=== PATIENT | female | born 1960 | race Caucasian/White ===

== ENCOUNTER → 2019-03-25 | Day surgery (SDC) | payer BC, OTHER ==
--- NOTE | 2019-03-26 16:42 | PATH ---
Surgical Pathology Report Patient Name: YANG MENJIVAR [facility]. Rec. #: [id number] /Age/Gender: 1960 (Age: 58) / F Account: [id number] Location: [facility] Taken: 03/25/2019 Received: 03/25/2019 Reported: 03/26/2019 Physicians: Serena Allen M.D. Specimen(s) Received A: RIGHT BREAST SPECIMEN - WITH CALCIFICATIONS B: RIGHT BREAST SPECIMEN - WITHOUT CALCIFICATIONS Clinical History Nonpalpable lesion Mammographic findings: Microcalcification, suspicious Final Diagnosis A. RIGHT BREAST SPECIMEN WITH CALCIFICATIONS, STEREOTACTIC BIOPSY: DUCTAL CARCINOMA IN SITU (DCIS), HIGH NUCLEAR GRADE, SOLID PATTERN, WITH ASSOCIATED NECROSIS AND CALCIFICATIONS. Results of Estrogen Receptor (ER) and Progesterone Receptor (NJ) studies performed on block "A1" at [facility] are as follows: ER (clone [id number] mouse monoclonal antibody by Leica): 40% nuclear staining with weak intensity (Positive). NJ (clone16 mouse monoclonal antibody by Leica): 0% nuclear staining (Negative). Positive and negative controls (internal if applicable) show appropriate results. Formalin fixation and cold ischemic times are within current ASCO/CAP recommendations for ER, NJ and Her2 testing. Comment: Immunohistochemical stains performed and interpreted at [facility] show the following results: smooth muscle myosin heavy chain and p63 show intact myoepithelial cell layer in the areas of carcinoma, supporting ductal carcinoma in situ. B. RIGHT BREAST SPECIMEN WITHOUT CALCIFICATIONS, STEREOTACTIC BIOPSY: BENIGN BREAST TISSUE WITH FOCAL STROMAL FIBROSIS. Electronically Signed Brooklyn Herrera M.D. Addendum Reported: 03/31/[address] Chandler's office confirmed receipt of faxed report, 03/30/2019. Brooklyn Herrera M.D. Gross Description A. Received in formalin labeled "right breast with calcifications," is a 2.5 x 2.4 x 0.3 cm aggregate of multiple messina-yellow, irregular to cylindrical portions of fibroadipose tissue. The formalin is filtered and the specimen is entirely submitted in one cassette. B. Received in formalin labeled "right breast without calcifications," is a 2.1 x 1.6 x 0.3 cm aggregate of multiple messina-yellow, irregular to cylindrical portions of fibroadipose tissue. The formalin is filtered and the specimen is entirely submitted in one cassette. Time to formalin fixation: 5 minutes Total formalin fixation time: Approximately 8 hours. DL03/25/2019 saudi03/25/2019
== END | disposition home or self-care (01) ==
LOC: FMAMMOTONE 08:44
PROVIDERS: ATTEND Obstetrics & Gynecology
PROC: 0HBT3ZX Excision of Right Breast, Percutaneous Approach, Diagnostic (ICD-10-PCS; principal; 2019-03-25)
DX: D05.91 Unspecified type of carcinoma in situ of right breast (principal); N64.89 Other specified disorders of breast; Z17.0 Estrogen receptor positive status [ER+]; N60.31 Fibrosclerosis of right breast; R92.1 Mammographic calcification found on diagnostic imaging of breast
CPT/HCPCS: 19081; 87899; 88305-TC; 88341-TC; 88342-TC; A4648

== ENCOUNTER 2019-05-25 06:59 | Day surgery (SDC) | payer BC, OTHER ==
[2019-05-24 13:21] VITALS: BMI 24.4
[2019-05-25] MEDS ORDERED: LIDOCAINE HCL 1%, 10 MG/ML (20ML VIAL) ONE ×3 (11:04→13:10)
[2019-05-25] MEDS ORDERED: ISOSULFAN BLUE 10 MG/ML VIAL SQ ONE (11:04)
[2019-05-25] MEDS ORDERED: MIDAZOLAM HCL 2 MG/2 ML SINGLE DOSE VIAL ONE (11:36)
[2019-05-25] MEDS ORDERED: PROPOFOL 20 ML ONE ×2 (11:36)
[2019-05-25] MEDS ORDERED: ceFAZolin SODIUM 1 GM VIAL IVPB ONE (13:30)
[2019-05-25] MEDS ORDERED: EPHEDRINE SULFATE/0.9% NACL/PF 50 MG/10 ML SYRINGE NR ONE (13:50)
--- NOTE | 2019-05-25 15:07 | OP ---
DATE OF OPERATION: DATE OF DICTATION: 05/25/2019 PREOPERATIVE DIAGNOSIS: Right breast ductal carcinoma in situ. POSTOPERATIVE DIAGNOSIS: Right breast ductal carcinoma in situ. PROCEDURE: Right breast bracket wire localized lumpectomy and sentinel node biopsy. SURGEON: Kristen Emery MD ANESTHESIA: General. ESTIMATED BLOOD LOSS: Minimal. COMPLICATIONS: None. This was a sterile procedure. INDICATION FOR PROCEDURE: Patient presented with a screening mammogram that noted calcifications in the lower inner right breast. A needle biopsy of 1 of these areas showed a ductal carcinoma in situ. There were other areas of calcifications in the lower inner right breast as well. Therefore, I did an MRI, which noted a 1.2-cm enhancing mass in this same location with a clip within it, and my recommendation was a lumpectomy and a central node biopsy given the wide area of DCIS and calcifications. The procedure was discussed with all of the questions answered. PROCEDURE IN DETAIL: Patient was brought to [facility] in [place], taken to breast imaging where 3 wires were placed by the blunger to localize the area on the lower inner right breast. She was then brought to nuclear medicine where I injected technetium sulfur colloid as an intradermal injection to the right breast 5 o'clock areolar border. She was brought up to the operating room, and after induction of general anesthesia and IV antibiotics, the right breast and axilla were prepped, 2.5 mL of Methylene blue diluted with 2.5 mL of injectable saline was injected by me into the right subaerolar plexus, and the breast was massaged for 5 minutes. The right breast and axilla were then prepped and draped in the usual sterile fashion. A 4-cm incision was made in the right axilla, carried down through the clavipectoral fascia to identify a level 1 sentinel lymph node that was blue and hot. This was sent to pathology as permanent section. There was no other blue dye radioactivity or pathologic feeling lymph node in the right axilla; therefore, once hemostasis was assured, the right breast lumpectomy was performed. A radial incision was made in the 4 o'clock location of the right breast, and all 3 wires were used to guide me to the area of interest, and an en bloc lumpectomy was performed, tagged with a long stitch lateral, short stitch superior, sent for a specimen radiograph. This was also a quadrantectomy. Hemostasis was assured with electrocautery. The specimen radiograph showed the clips as well as the 3 wires to be intact within the specimen as well as multiple areas of calcifications. The margins from the calcifications appear adequate. This was then sent to Pathology for permanent section. Hemostasis was assured with electrocautery. The parenchyma was approximated with interrupted 2-0 Vicryl, skin approximated with interrupted 3-0 Vicryl and running 4-0 Prolene. A sterile dressing with Tegaderm and 4 x 4 was applied. The axillary incision was also closed in a routine fashion with interrupted 3-0 Vicryl, running 4-0 Prolene. A sterile dressing with Tegaderm, 4 x 4 was applied. She tolerated the procedure well, was extubated on the operating room table. A mammary binder was placed, and she was taken to recovery in good condition. KRISTEN EMERY M.D. [id number]
[2019-05-25] MEDS ORDERED: oxyCODONE HCL 5 MG TABLET PO PRN (15:25)
[2019-05-25] MEDS ORDERED: ONDANSETRON 4 MG/2 ML VIAL IVPUSH PRN (15:25)
[2019-05-25 16:06] VITALS: TEMP 97.7
[2019-05-25] MEDS ORDERED: oxyCODONE HCL 5 MG TABLET ONE (16:31)
[2019-05-25 17:41] VITALS: BP 121/76; PULSE 90
--- NOTE | 2019-05-28 17:42 | PATH ---
Surgical Pathology Report Patient Name: YANG MENJIVAR [facility]. Rec. #: [id number] /Age/Gender: 1960 (Age: 58) / F Account: [id number] Location: [facility] Taken: 05/25/2019 Received: 05/25/2019 Reported: 05/28/2019 Physicians: Kristen Truong M.D. Specimen(s) Received A: RIGHT BREAST LUMPECTOMY B: RIGHT AXILLARY SENTINEL LYMPH NODE#1 BLUE AND HOT Clinical History DCIS Final Diagnosis A. RIGHT BREAST LUMPECTOMY: MICROINVASIVE CARCINOMA, MULTIPLE FOCI (AT LEAST 4 FOCI), MEASURES LESS THAN 1 MM IN GREATEST DIMENSION, IN A BACKGROUND OF DUCTAL CARCINOMA IN SITU (DCIS). DCIS, HIGH NUCLEAR GRADE, SOLID PATTERN, WITH ASSOCIATED NECROSIS AND CALCIFICATIONS. DCIS SPANS AT LEAST 20 MM IN GREATEST DIMENSION, PRESENT IN 31 OUT OF 32 SLIDES. MARGINS ARE NEGATIVE FOR CARCINOMA. MICROINVASIVE CARCINOMA IS 5MM FROM THE CLOSEST MARGIN (INFERIOR). DCIS IS AT LESS THAN 1 MM FROM MEDIAL, INFERIOR, AND DEEP MARGINS. PRIOR BIOPSY SITE WITH REACTIVE CHANGES PRESENT. PATHOLOGIC STAGE (pTMN): pT1mi pN0 (sn) ALSO SEE SURGICAL PATHOLOGY CASE SUMMARY BELOW. Comment: Immunohistochemical stains performed and interpreted at [facility] show the following results: smooth muscle myosin heavy chain and p63 show loss of the myoepithelial cell layer in the foci of microinvasive carcinoma (block A3, A9, and A15). Smooth muscle myosin heavy chain and p63 highlight preserved myoepithelial layer in DCIS (block A4 and A18). B. RIGHT AXILLARY SENTINEL LYMPH NODE #1, BLUE AND HOT, EXCISION: ONE LYMPH NODE, NEGATIVE FOR METASTATIC CARCINOMA (0/1). Comments Breast Invasive Carcinoma: Surgical Pathology Case Summary (Based on AJCC TNM 8 th edition) Procedure _x_ Excision (less than total mastectomy) Specimen Laterality _x_ Right Tumor Size _x_ Microinvasion only (=1 mm) Histologic Type _x_ Micro-invasive carcinoma Histologic Grade (Brian Histologic Score) Glandular (Acinar)/Tubular Differentiation _x_ Only microinvasion present (not graded) Nuclear Pleomorphism _x_ Only microinvasion present (not graded) Mitotic Rate _x_ Only microinvasion present (not graded) Overall Grade _x_ Only microinvasion present (not graded) Tumor Focality _x_ Multiple foci of invasive carcinoma Number of foci: at least 4 Sizes of individual foci: <1mm Ductal Carcinoma In Situ (DCIS) _x_ DCIS is present in specimen Size (extent) of DCIS: Estimated size (extent) of DCIS is at least (millimeters): 20 mm Number of blocks with DCIS: 31 Number of blocks examined: 32 Margins Invasive Carcinoma Margins __x_ Uninvolved by invasive carcinoma Distance from closest margin (millimeters): 5 mm Closest margin: Inferior margin DCIS Margins _x_ Uninvolved by DCIS Distance from closest margin (millimeters): < 1 mm Closest margin: medial, inferior, and deep margins. Regional Lymph Nodes _x_ Uninvolved by tumor cells Number of Lymph Nodes Examined: 1 Number of Russell Nodes Examined: 1 Treatment Effect _x_ No known presurgical therapy Lymphovascular Invasion _x_ Not identified Pathologic Stage Classification (pTNM, AJCC 8th Edition) Primary Tumor (Invasive Carcinoma) (pT) _x_ pT1mi: Tumor =1 mm in greatest dimension Category (pN) _x_ pN0 (sn): No regional lymph node metastasis identified or ITCs only Biomarker Studies Results of ER and MT studies performed on this specimen (block# A15) at [facility] for the area of microinvasive carcinoma are as follows: ER (clone 6F11 mouse monoclonal antibody by Leica): <1% nuclear staining with weak intensity (negative). MT (clone16 mouse monoclonal antibody by Leica): 0% nuclear staining (negative). Results of Her2 and Ki67 studies will be reported separately in an addendum. Positive and negative controls (internal if applicable) show appropriate results. Formalin fixation and cold ischemic times are within current ASCO/CAP recommendations for ER, MT and Her2 testing. Electronically Signed Brooklyn Herrera M.D. Addendum Reported: 06/07/2019 Addendum Diagnosis Breast Cancer Biomarker Analysis performed and interpreted at [facility] ([id number]) shows the following: Marker Result Interpretation Ki67 15% Borderline HER2 IHC 3+ Positive See [facility] report for additional details. Brooklyn Herrera M.D. Gross Description A. Received fresh on an AccuGrid, labeled "right breast lumpectomy," is a 7.8 x 6.7 x 3.8 cm. messina-yellow, irregular, portion of fibroadipose tissue with 3 needle localization wires present. There is a short suture marking the superior aspect and a long suture marking the lateral aspect, per the surgeon. There is no skin or nipple present. The specimen is inked as follows: Superior blue; inferior green; anterior and lateral red; medial yellow; deep black. The specimen is serially sectioned from anterior to deep. Sectioning reveals abundant dense, white, focally firm fibrous tissue abutting the superior, inferior, lateral and deep margins. Metal Window Screen Assembler sections are submitted in 32 cassettes as follows: 1-anterior margin; 8-00-gyvssuxl submitted fibrous tissue from anterior to deep (one bisected section each in cassettes 2/3, 4/5, 6/7; one trisected section each in cassettes 8//10, 11//13, 14/15/16, 17/18/19, 20/21/22, 23/24/25; one bisected section each in cassettes 26/27, 28/29, 30/31); 32-deep margin. Time to formalin fixation: Less than one hour Total formalin fixation time: Approximately 27 hours B. Received in formalin labeled "right axillary sentinel lymph node," is a 1.8 x 1.7 x 0.6 cm lymph node with attached fat. The specimen is bisected and entirely submitted in two cassettes. 05/26/2019 [facility]05/26/2019
== END 2019-05-25 17:15 | disposition home or self-care (01) ==
LOC: JASU-SURG 06:59
PROVIDERS: ATTEND Surgery
PROC: 0HBT0ZZ Excision of Right Breast, Open Approach (ICD-10-PCS; principal; 2019-05-25 12:00)
DX: C50.311 Malignant neoplasm of lower-inner quadrant of right female breast (principal); D05.91 Unspecified type of carcinoma in situ of right breast
CPT/HCPCS: 19281; 76098-TC-FY; 78195-TC; 88307-TC; 88341-TC; 88342-TC; 94760; A9541

== ENCOUNTER 2019-07-27 07:08 | Inpatient (IN) | payer BC, OTHER ==
[2019-07-23 16:10] VITALS: BMI 23.8
[2019-07-27] MEDS ORDERED: MIDAZOLAM HCL 2 MG/2 ML SINGLE DOSE VIAL ONE ×2 (09:11)
[2019-07-27] MEDS ORDERED: ROCURONIUM BROMIDE 50 MG/5 ML SYRINGE ONE (09:18)
[2019-07-27] MEDS ORDERED: ceFAZolin SODIUM 1 GM VIAL IVPB ONE (09:32)
[2019-07-27] MEDS ORDERED: LACTATED RINGERS SOLUTION 1,000 ML/1,000 ML INFUS.BAG IV SCH (10:45)
[2019-07-27] MEDS ORDERED: ONDANSETRON 4 MG/2 ML VIAL IVPB PRN (10:45)
[2019-07-27] MEDS ORDERED: ACETAMINOPHEN 500 MG TABLET (FP) PO PRN (10:45)
[2019-07-27] MEDS ORDERED: ALPRAZolam 0.25 MG TABLET PO ONE (10:45)
[2019-07-27] MEDS ORDERED: oxyCODONE HCL 5 MG TABLET PO PRN ×2 (10:54→10:55)
[2019-07-27] MEDS ORDERED: ACETAMINOPHEN 325 MG TABLET (FP) PO PRN ×2 (10:54→10:55)
[2019-07-27] MEDS ORDERED: HYDROmorphone *PCA* 10MG/50ML DISP.SYRIN PCA SCH ×3 (11:00→14:00)
[2019-07-27] MEDS ORDERED: ePHEDrine SULFATE 50 MG/1 ML AMPULE ONE (11:38)
--- NOTE | 2019-07-27 13:23 | OP ---
Operative Note - Note: Operative Date: 07/27/19 Pre-Operative Diagnosis: Acquired Absense of Both Breasts Operation: Bilateral Immediate Staged Breast Reconstruction, Bilateral Insertion of Tissue Expanders, Bilateral Insertion of Alloderm. Implants: Coram CPX4 Tissue Expanders Tall Height 450cc Post-Operative Diagnosis: Same as Pre-op Surgeon: Tony Petersen Anesthesia: General Operative Report Dictated: Yes
[2019-07-27] MEDS ORDERED: ONDANSETRON 4 MG/2 ML VIAL IVPUSH PRN ×2 (13:29→13:53)
[2019-07-27] MEDS: LACTATED RINGERS SOLUTION 1,000 ML IV SCH ×2 (13:30→21:51)
[2019-07-27] MEDS ORDERED: HYDROmorphone HCl 2 MG/ML VIAL IVPUSH ONE (13:30)
[2019-07-27] MEDS ORDERED: HYDROmorphone *PCA* 10MG/50ML DISP.SYRIN ONE (13:41)
--- NOTE | 2019-07-27 13:49 | OP ---
DATE OF OPERATION: 07/27/2019 PREOPERATIVE DIAGNOSIS: Acquired absence of both breasts. POSTOPERATIVE DIAGNOSIS: Acquired absence of both breasts. PROCEDURE PERFORMED: Bilateral immediate staged breast reconstruction with bilateral insertion of tissue expanders and bilateral insertion of Alloderm sheets. SURGEON: Tony Lambert MD ANESTHESIA: General via endotracheal tube. DESCRIPTION OF PROCEDURE: The patient is on the operating room at the conclusion of bilateral total mastoidectomies by Dr. Truong. The right breast reconstruction was now approached first. The subpectoral plane was developed using electrocautery and lighted retractors. The dissection continued in the subpectoral pocket superiorly, medially, and laterally. The inferior attachments of the pectoralis muscle to the ribs was released, and a sheet of medium-thickness Alloderm was brought onto the field and soaked for 5 minutes in saline. This perforated sheet was trimmed to size and was inset first suturing to the lower edge of the pectoralis major muscle in a continuous horizontal mattress fashion. A tissue cloud systems administrator selected was a Meta CPX 4 tall height cloud systems administrator 450 mL. Of note, the weight of the surgical specimen on the right breast was 545 g and on the left breast was 422 g (understandable as the patient has had a previous lumpectomy with radiation on the left). All air was removed from the tissue cloud systems administrator, and 50 mL of sterile saline was instilled into the cloud systems administrator. Assessment Nurse was then placed under the subpectoralis muscle and Alloderm and the Alloderm was reflected over the inferior aspect of the tissue cloud systems administrator and sutured in place at the inframammary fold and laterally. The sutures used were 2-0 Vicryl suture in simple, interrupted fashion in the inframammary fold. A 19-Fijian Nawaf-Sethi round drain was inserted through a separate stab incision in the anterior axillary line, and this was trimmed to size. The drain was sutured in place with a 2-0 silk suture. The wounds were then closed in layered fashion. Deep tissues were closed with 3-0 Biosyn suture in interrupted buried fashion, and skin was closed using No. 4-0 V-Lock 90 suture in a continuous intradermal fashion. The wound was further secured with Steri-Strips. An identical procedure was performed on the left breast, and an identical tissue cloud systems administrator was selected. At the conclusion of the procedure prior to placing dressings, the port finder was used to locate the ports on both sides, and an additional 50 mL of sterile saline was instilled into each cloud systems administrator. Therefore, at the conclusion of the procedure, 100 mL of saline was present in each tissue cloud systems administrator. Sterile dressings were then applied and secured with a surgical bra. The patient was then awoken from anesthesia without any difficulty and taken from the operating room to the recovery room in satisfactory condition having tolerated the procedure well. TONY LAMBERT M.D. /[id number]
[2019-07-27] MEDS ORDERED: DEXAMETHASONE SOD PHOSPHATE 4 MG/1 ML VIAL IVPUSH PRN (13:53)
[2019-07-27] MEDS ORDERED: PROMETHAZINE HCL 25 MG/1 ML VIAL IVPB PRN (13:53)
--- NOTE | 2019-07-27 14:21 | OP ---
DATE OF OPERATION: 07/27/2019 PREOPERATIVE DIAGNOSIS: Right breast cancer. POSTOPERATIVE DIAGNOSIS: Right breast cancer. PROCEDURE: Bilateral total mastectomy. SURGEON: Kristen Emery MD BDR: Tony Petersen MD ANESTHESIA: General. ESTIMATED BLOOD LOSS: Minimal. COMPLICATIONS: None. This was a sterile procedure. INDICATION FOR PROCEDURE: Patient had a right breast lumpectomy for multifocal, invasive duct carcinoma with multiple areas of DCIS with close margins. Given a history of left breast cancer, we discussed the options of re-excision lumpectomy versus mastectomy, and after discussion, decision was to go ahead with bilateral mastectomy. She met with Dr. Petersen to discuss reconstruction options. PROCEDURE IN DETAIL: Patient brought to [facility]. Taken into the operating room, and after induction of general anesthesia and IV antibiotics, both breasts were prepped and draped in the usual sterile fashion. An incision was made to include the nipple areolar complex first on the right side, and superior, inferior, medial, lateral flaps were raised, and the breast was reflected off the pectoralis muscle. Tagged with a stitch at the lateral edge and sent as a right mastectomy. The hemostasis was assured with electrocautery. Then instruments, gloves, gowns were changed and the left breast mastectomy was performed. Again, an ellipse of skin was taken to include the nipple areolar complex, and superior, inferior, medial, lateral flaps were raised, and the breast was reflected off the pectoralis muscle and tagged with a stitch at the lateral edge. Sent as a left mastectomy. Hemostasis was assured with electrocautery. She tolerated procedure well. She was then left with Dr. Petersen to finish the reconstruction part of the procedure. KRISTEN EMERY M.D. [id number]
--- NOTE | 2019-07-27 20:06 | CONSULT ---
Consultation: REQUESTING PROVIDER: Dr. Petersen CONSULT REQUEST: We have been asked to medically evaluate this patient for ( specify). HISTORY OF PRESENT ILLNESS: Patient is a 59 year old female with PMH of DCIS breast CA s/p L mastectomy and femoral bypass surgery 5 years ago who presents today s/p R breast mastectomy and reconstruction. Pt endorses mild discomfort surround surgical site. Denies any fevers, chills, chest pain, SOB, abd pain. REVIEW OF SYSTEMS: CONSTITUTIONAL: Absent: fever, chills, diaphoresis, generalized weakness, malaise, loss of appetite, weight change HEENT: Absent: rhinorrhea, nasal congestion, throat pain, throat swelling, difficulty swallowing, mouth swelling, ear pain, eye pain, visual changes CARDIOVASCULAR: Absent: chest pain, syncope, palpitations, irregular heart rate, lightheadedness , peripheral edema RESPIRATORY: Absent: cough, shortness of breath, dyspnea with exertion, orthopnea, wheezing, stridor, hemoptysis GASTROINTESTINAL: Absent: abdominal pain, abdominal distension, nausea, vomiting, diarrhea, constipation, melena, hematochezia GENITOURINARY: Absent: dysuria, frequency, urgency, hesitancy, hematuria, flank pain, genital pain MUSCULOSKELETAL: Absent: myalgia, arthralgia, joint swelling, back pain, neck pain SKIN: Absent: rash, itching, pallor HEMATOLOGIC/IMMUNOLOGIC: Absent: easy bleeding, easy bruising, lymphadenopathy, frequent infections ENDOCRINE: Absent: unexplained weight gain, unexplained weight loss, heat intolerance, cold intolerance NEUROLOGIC: Absent: headache, focal weakness or paresthesias, dizziness, unsteady gait, seizure, mental status changes, bladder or bowel incontinence PSYCHIATRIC: Absent: anxiety, depression, suicidal or homicidal ideation, hallucinations. PHYSICAL EXAMINATION Vital Signs - 24 hr 07/27/19 07/27/19 07/27/19 07:32 07:54 07:56 Temperature 97.8 F Pulse Rate 89 Respiratory 16 Rate Blood Pressure 115/73 O2 Sat by Pulse 96 96 Oximetry (%) 07/27/19 07/27/19 07/27/19 13:19 13:30 13:45 Temperature 98.6 F Pulse Rate 100 H 96 H 93 H Respiratory 20 12 16 Rate Blood Pressure 149/82 150/73 141/74 O2 Sat by Pulse 95 100 100 Oximetry (%) 07/27/19 07/27/19 07/27/19 13:50 14:00 14:15 Temperature Pulse Rate 93 H 97 H 95 H Respiratory 16 10 11 Rate Blood Pressure 141/74 138/68 125/71 O2 Sat by Pulse 100 100 99 Oximetry (%) 07/27/19 07/27/19 07/27/19 14:30 14:45 15:00 Temperature Pulse Rate 98 H 97 H 98 H Respiratory 16 12 12 Rate Blood Pressure 130/71 132/67 126/75 O2 Sat by Pulse 99 99 98 Oximetry (%) 07/27/19 07/27/19 07/27/19 15:15 15:30 15:45 Temperature Pulse Rate 98 H 88 88 Respiratory 12 16 12 Rate Blood Pressure 130/71 140/80 135/75 O2 Sat by Pulse 98 98 98 Oximetry (%) 07/27/19 07/27/19 07/27/19 16:00 16:15 16:30 Temperature Pulse Rate 92 H 92 H 95 H Respiratory 16 16 16 Rate Blood Pressure 118/80 135/73 131/74 O2 Sat by Pulse 98 98 99 Oximetry (%) 07/27/19 07/27/19 07/27/19 16:45 17:00 17:15 Temperature Pulse Rate 97 H 94 H 95 H Respiratory 16 16 16 Rate Blood Pressure 133/73 126/68 130/70 O2 Sat by Pulse 99 99 99 Oximetry (%) 07/27/19 17:30 Temperature Pulse Rate 93 H Respiratory 11 Rate Blood Pressure 112/72 O2 Sat by Pulse 97 Oximetry (%) GENERAL: Awake, alert, and fully oriented, in no acute distress. HEAD: Normal with no signs of trauma. EYES: Pupils equal, round and reactive to light, extraocular movements intact, sclera anicteric, conjunctiva clear. No lid lag. EARS, NOSE, THROAT: Ears normal, nares patent, oropharynx clear without exudates. Moist mucous membranes. NECK: Normal range of motion, supple without lymphadenopathy, JVD, or masses. LUNGS: Breath sounds equal, clear to auscultation bilaterally. No wheezes, and no crackles. No accessory muscle use. HEART: Regular rate and rhythm, normal S1 and S2 without murmur, rub or gallop. CHEST: Surgical dressing in place with no erythema or drainage. ABDOMEN: Soft, nontender, not distended, normoactive bowel sounds, no guarding, no rebound, no masses. No hepatomegaly or splenomegaly. MUSCULOSKELETAL: Normal range of motion at all joints. No bony deformities or tenderness. No CVA tenderness. UPPER EXTREMITIES: 2+ pulses, warm, well-perfused. No cyanosis. No clubbing. Cap refill <2 seconds. No peripheral edema. LOWER EXTREMITIES: 2+ pulses, warm, well-perfused. No calf tenderness. No peripheral edema. NEUROLOGICAL: Cranial nerves II-XII intact. Normal speech. Normal gait. PSYCHIATRIC: Cooperative. Good eye contact. Appropriate mood and affect. SKIN: Warm, dry, normal turgor, no rashes or lesions noted. Laboratory Results - last 24 hr 07/27/19 08:50 Blood Type A POSITIVE Antibody Screen Negative Active Medications Acetaminophen (Tylenol -) 325 mg PO Q6H PRN PRN Reason: PAIN 1-5 Acetaminophen (Tylenol -) 650 mg PO Q6H PRN PRN Reason: PAIN 6-10 Chlorhexidine Gluconate (Hibiclens For Decolonization -) 1 applic TP HS [facility] Ciprofloxacin (Cipro (Restricted To Id)) 500 mg PO BID [facility] Dexamethasone Sodium Phosphate (Decadron Injection -) 4 mg IVPUSH ONCE PRN PRN Reason: NAUSEA AND/OR VOMITING Diphenhydramine HCl (Benadryl Injection -) 12.5 mg IVPUSH ONCE PRN PRN Reason: FOR ITCHING Hydromorphone HCl (Hydromorphone 10 Mg/50 Ml-Ns) 10 mg FRUIT OR NUT FARM WORKER FRUIT OR NUT FARM WORKER [facility]; Protocol Stop: 07/28/19 13:49 Lactated Ringer's (Lactated Ringers Solution) 1,000 mls @ 75 mls/hr IV ASDIR [facility] Levofloxacin (Levaquin -) 500 mg PO ONCE@0600 ONE Stop: 07/28/19 06:01 Mupirocin (Bactroban Ointment (For Decolonization) -) 1 applic NS BID [facility] Stop: 08/01/19 21:59 Oxycodone HCl (Roxicodone -) 5 mg PO Q6H PRN PRN Reason: PAIN 1-5 Oxycodone HCl (Roxicodone -) 10 mg PO Q6H PRN PRN Reason: PAIN 6-10 Pneumococcal 13-Valent Conj Vacc (Prevnar 13 Syringe -) 0.5 ml IM .ONCE ONE Stop: 07/28/19 07:54 Promethazine HCl (Phenergan Injection -) 12.5 mg IVPB Q6H PRN PRN Reason: NAUSEA AND/OR VOMITING ASSESSMENT/PLAN: Patient is a 59 year old female with PMH of DCIS breast CA s/p L mastectomy and femoral bypass surgery 5 years ago who presents today s/p R breast mastectomy and reconstruction. Post-op monitoring in ICU. Neuro -Awake, alert, and oriented x3 Cardiovascular -S/p bypass 5 years ago -Cont home asa daily Reproductive -Hx of DCIS breast CA and mastectomy -S/p R mastectomy and reconstruction -Pain management as per surgery (oxycodone, tyenol, hydromorphone FRUIT OR NUT FARM WORKER) -Empiric ciprofloxacin FEN -IV LR @ 75ml/hr -Regular diet DVT ppx -SCDs per surgery Dispo: We will continue to follow the patient. Thank you for this consultative opportunity. ATTENDING PHYSICIAN STATEMENT I saw and evaluated the patient. I reviewed the resident's note and discussed the case with the resident. I agree with the resident's findings and plan as documented. SUBJECTIVE: OBJECTIVE: ASSESSMENT AND PLAN:
[2019-07-27] MEDS ORDERED: CHLORHEXIDINE GLUCONATE 4% CLEANSER FOR DECOLONIZATION TP SCH (22:00)
[2019-07-27] MEDS ORDERED: MUPIROCIN 2% TOPICAL OINTMENT FOR DECOLONIZATION NS SCH (22:00)
[2019-07-28] MEDS ORDERED: PT OWN MED DRAWER 7, Y5N ONE (06:03)
[2019-07-28] MEDS ORDERED: PNEUMOC 13-VAL CONJ-DIP CRM/PF 0.5 ML DISP.SYRIN IM ONE (07:53)
[2019-07-28] MEDS ORDERED: PNEUMOCOCCAL 23 VACCINE 0.5 ML VIAL IM ONE (09:00)
[2019-07-28] MEDS: LACTATED RINGERS SOLUTION 1,000 ML IV SCH (09:43)
--- NOTE | 2019-07-28 13:15 | PN ---
Progress Note (short form) - Note Progress Note: pod 1 s/p bilateral mastectomy feels well, pain control adequate, afebrile, VSS Mastectomy flaps viable. JPs in place and functioning. Plan- ambulate D/C home today
[2019-07-28 13:55] VITALS: BP 128/68; PULSE 90; TEMP 98.2
--- NOTE | 2019-08-02 14:58 | PATH ---
Surgical Pathology Report Patient Name: YANG MENJIVAR [facility]. Rec. #: [id number] /Age/Gender: 1960 (Age: 59) / F Account: [id number] [facility] Taken: 07/27/2019 Received: 07/27/2019 Reported: 08/02/2019 Physicians: Kristen Truong M.D. Specimen(s) Received A: RIGHT BREAST, MASTECTOMY B: LEFT BREAST, MASTECTOMY Clinical History Previous left breast cancer 8 years ago; right breast cancer/DCIS with close margin. Final Diagnosis A. BREAST, RIGHT, MASTECTOMY: FOCAL DUCTAL CARCINOMA IN SITU (DCIS), HIGH NUCLEAR GRADE, SOLID AND MICROPAPILLARY TYPES, WITH MODERATE NECROSIS, AND ASSOCIATED MICROCALCIFICATIONS, PRESENT IN TWO OF NINETEEN SLIDES (2/19). DCIS SPANS 5.5 MM IN GREATEST MICROSCOPIC DIMENSION, PRESENT AT LOWER INNER QUADRANT (LIQ). SURGICAL MARGINS ARE UNINVOLVED BY DCIS; WIDELY FREE. PRIOR BIOPSY SITE CHANGES ARE PRESENT. SKIN AND NIPPLE ARE UNINVOLVED BY DCIS. REMAINDER OF BREAST PARENCHYMA SHOWS FIBROCYSTIC CHANGES INCLUDING STROMAL FIBROSIS, MICROCYSTS, APOCRINE METAPLASIA, COLUMNAR CELL CHANGES, USUAL DUCTAL HYPERPLASIA, AND ASSOCIATED MICROCALCIFICATIONS. PATHOLOGIC STAGE (pTNM, 8th ED): pT1mi pN0(sn), SEE COMMENT. B. BREAST, LEFT, MASTECTOMY: BENIGN BREAST PARENCHYMA WITH FIBROADENOMAS AND DENSE STROMAL FIBROSIS IN A BACKGROUND OF FIBROCYSTIC CHANGES INCLUDING MICROCYSTS, COLUMNAR CELL CHANGES, FOCAL SCLEROSING ADENOSIS, APOCRINE METAPLASIA, FOCAL USUAL DUCTAL HYPERPLASIA, AND ASSOCIATED MICROCALCIFICATIONS. SKIN AND NIPPLE WITHOUT SIGNIFICANT PATHOLOGIC FINDINGS. SCANT SKELETAL MUSCLE NOTED. Comment: Part A, Pathologic stage above is based on findings from prior lumpectomy specimen ([id number]). Part B, prior history of left breast cancer noted. Electronically Signed [place] M.D. Gross Description A. Received in formalin, labeled "right mastectomy," is a 546 gram, 17.5 x 15.5 x 4.8 cm. right mastectomy specimen with a suture marking the lateral edge of the skin, per the surgeon. The anterior surface displays a 15.5 x 3.5 cm messina, irregular portion of skin with a 1.0 cm in diameter nipple. There is a 4.5 cm in length well-healed scar on the medial aspect of the skin. The deep margin is inked black and the anterior soft tissue margin is inked blue. The specimen is serially sectioned from lateral to medial. Sectioning reveals a previous biopsy cavity in the lower inner quadrant (LIQ). The cavity focally abuts the anterior soft tissue margin, and widely free from all other margins. The cavity is surrounded by abundant dense, white, focally firm fibrous tissue and fat necrosis. No definitive mass is identified. The remaining breast parenchyma displays abundant dense, white, focally firm fibrous tissue. Data Integrity Specialist sections are submitted in 19 cassettes as follows: 1-serially sectioned nipple; 2-subareolar shaved; 3-8-LIQ previous biopsy cavity with surrounding fibrous tissue; 0-72-dmkbsmlhbo LIQ tissue; 11-12-upper inner quadrant; 13-14-upper outer quadrant; 15-16-lower outer quadrant; 17-anterior soft tissue margin; 18-skin; 19-deep margin. B. Received in formalin, labeled "left mastectomy," is a 414 gram, 15.5 x 13.5 x 4.0 cm. left mastectomy specimen with a suture marking the lateral edge of the skin, per the surgeon. There is a 15.5 x 4.0 cm messina, elliptical portion of skin with a 0.9 cm in diameter inverted nipple. The deep margin is inked black and the anterior soft tissue margin is inked blue. The specimen is serially sectioned from medial to lateral. Sectioning reveals abundant dense, white, focally firm fibrous tissue. No definitive mass is identified. Data Integrity Specialist sections are submitted in 18 cassettes as follows: 1-serially sectioned nipple; 2-subareolar shave; 3-6-upper inner quadrant; 7-9-lower inner quadrant; 10-11-upper outer quadrant; 12-15-lower outer quadrant; 16-anterior soft tissue margin; 17-skin; 18-deep margin. Total formalin fixation time: Approximately 26 hours. 07/28/2019 [facility]07/28/2019
== END 2019-07-28 14:56 | disposition home health service (06) | DRG 583 ==
LOC: JSAMEDAYSX 07:08 → JICU 18:36
PROVIDERS: ADMIT Surgery; ATTEND Surgery
PROC: 0HTV0ZZ Resection of Bilateral Breast, Open Approach (ICD-10-PCS; principal; 2019-07-27 09:00)
PROC: 0HHV0NZ Insertion of Tissue Expander into Bilateral Breast, Open Approach (ICD-10-PCS; 2019-07-27 09:00)
DX: C50.911 Malignant neoplasm of unspecified site of right female breast (principal)
CPT/HCPCS: 86850; 86900; 86901; 88307-TC; 90732; 94760; G0009

== ENCOUNTER 2020-02-09 04:34 | Day surgery (SDC) | payer BC, OTHER ==
[2020-02-08 11:23] VITALS: BMI 23.4
[2020-02-09] MEDS ORDERED: LIDOCAINE HCL 1%, 10 MG/ML (20ML VIAL) ONE (07:42)
[2020-02-09] MEDS ORDERED: LIDOCAINE HCL/PF 2% SDV 5ML VIAL ONE ×2 (07:59→09:48)
[2020-02-09] MEDS ORDERED: PROPOFOL 20 ML ONE ×2 (07:59)
[2020-02-09] MEDS ORDERED: CLINDAMYCIN 600 MG PREMIX BAG IVPB ONE (08:12)
[2020-02-09] MEDS ORDERED: KETOROLAC TROMETHAMINE 30 MG/1 ML VIAL ONE (09:48)
[2020-02-09] MEDS ORDERED: DEXAMETHASONE SOD PHOSPHATE 4 MG/1 ML VIAL ONE (09:48)
[2020-02-09] MEDS ORDERED: ONDANSETRON 4 MG/2 ML VIAL IVPUSH PRN (10:11)
[2020-02-09] MEDS ORDERED: PROMETHAZINE HCL 25 MG/1 ML VIAL IVPUSH PRN (10:11)
[2020-02-09] MEDS ORDERED: oxyCODONE HCL 5 MG TABLET PO PRN (10:11)
--- NOTE | 2020-02-09 10:21 | OP ---
Operative Note - Note: Operative Date: 02/09/20 Pre-Operative Diagnosis: History of Breast Cancer, Open Wound Left Breast Operation: Left Breast Wound Debridement including Rib, Advancement Flap Closure Post-Operative Diagnosis: Same as Pre-op Surgeon: Tony Petersen Anesthesia: General Specimens Removed: Debrided Tissue including bone (Rib) Operative Report Dictated: Yes
--- NOTE | 2020-02-09 12:11 | OP ---
DATE OF OPERATION: 02/09/2020 PREOPERATIVE DIAGNOSIS: History of breast cancer with open wound, left breast. POSTOPERATIVE DIAGNOSIS: History of breast cancer with open wound, left breast. PROCEDURE PERFORMED: Left breast wound debridement including rib and advancement flap closures. SURGEON: Tony Lambert MD ANESTHESIA: General via LMA. BRIEF HISTORY: The patient is a 59-year-old female who is status post bilateral mastectomies with immediate reconstructions. The patient had radiation on the left breast and is a significant smoker, and the left breast wound eventually dehisced, requiring the implant to be removed. Wound was left to close secondarily, and patient now has a persistent modest-sized open wound requiring surgical closure. In addition, there is an area of the underlying rib which is exposed, and osteomyelitis is suspected. The patient is now for debridement and closure. DESCRIPTION OF PROCEDURE: The patient is on the operating table in the supine position, and general anesthesia was administered by the anesthesiologist. The area of the chest was then prepped and draped in the usual sterile fashion. The wound edges were excised, and the base of the wound was debrided with the edge of a scalpel blade and a sharp curet. The rib was debrided using a sharp curet and was found to be very friable and sent for both culture and pathology to rule out bony involvement from her tumor. Hemostasis was achieved with electrocautery, and the superior and inferior mastectomy flaps were re-elevated, the flap from the pectoralis muscle beneath. The wound was then approximated, and excess tissue both medially and laterally was then trimmed as required. Superior tissues and inferior tissues were both advanced towards the wound, and wound closure was possible with minimal tension. The wound was closed in layered fashion. Deep tissues were closed with No. 3-0 Biosyn suture in interrupted buried fashion, and skin was closed with multiple 4-0 nylon sutures in interrupted horizontal mattress fashion and interrupted simple fashion. Sterile compressive dressing was applied and secured with a surgical bra. The patient was then awoken from anesthesia without any difficulty and taken from the operating room to the recovery room in satisfactory condition, having tolerated the procedure well. TONY LAMBERT M.D. [id number]
[2020-02-09] MEDS ORDERED: oxyCODONE HCL 5 MG TABLET ONE (12:21)
[2020-02-09 13:17] VITALS: BP 110/50; PULSE 80; TEMP 97.5
--- NOTE | 2020-02-10 16:13 | PATH ---
Surgical Pathology Report Patient Name: YANG MENJIVAR [facility]. Rec. #: [id number] /Age/Gender: 1960 (Age: 59) / F Account: [id number] Location: [facility] Taken: 02/09/2020 Received: 02/09/2020 Reported: 02/10/2020 Physicians: Tony Petersen M.D. Specimen(s) Received A: DEBRIDEMENT TISSUE LEFT BREAST B: TISSUE FROM LEFT RIB Clinical History History of left breast cancer Final Diagnosis A. LEFT BREAST DEBRIDED TISSUE: PORTION OF SKIN AND DERMIS WITH ACANTHOSIS, MARKED ACUTE AND CHRONIC INFLAMMATION, ABSCESS, AND GRANULATION TISSUE FORMATION. NEGATIVE FOR CARCINOMA. B. TISSUE FROM LEFT RIB: PORTION OF SKIN WITH ACANTHOSIS, MARKED ACUTE AND CHRONIC INFLAMMATION. SEPARATE FRAGMENTS OF BONE AND CARTILAGE. NEGATIVE FOR CARCINOMA. Electronically Signed Brooklyn Herrera M.D. Gross Description A. Received in formalin labeled "debrided tissue left breast," is a 4.0 x 2.0 x 0.3 cm aggregate of multiple messina, irregular fragments of necrotic skin and soft tissue. A sales representative printing paper portion is submitted in one cassette. B. Received in formalin labeled "tissue from left rib," is a 0.3 x 0.3 x 0.1 cm aggregate of messina soft tissue fragments. The formalin is filtered and the specimen is entirely submitted in one cassette. /02/09/2020 saudi/02/09/2020
== END 2020-02-09 13:19 | disposition home or self-care (01) ==
LOC: JASU-SURG 04:34
PROVIDERS: ATTEND Plastic Surgery
PROC: 0JX60ZC Transfer Chest Subcutaneous Tissue and Fascia with Skin, Subcutaneous Tissue and Fascia, Open Approach (ICD-10-PCS; 2020-02-09)
PROC: 0PB10ZZ Excision of 1 to 2 Ribs, Open Approach (ICD-10-PCS; principal; 2020-02-09 08:00)
DX: T81.89XA Other complications of procedures, not elsewhere classified, initial encounter (principal); Y83.4 Other reconstructive surgery as the cause of abnormal reaction of the patient, or of later complication, without mention of misadventure at the time of the procedure; Y92.9 Unspecified place or not applicable; Z90.13 Acquired absence of bilateral breasts and nipples; F17.210 Nicotine dependence, cigarettes, uncomplicated
CPT/HCPCS: 87070; 87076; 87186; 87205; 88304-TC; 88305-TC; 94760

== ENCOUNTER 2021-02-05 06:28 | Day surgery (SDC) | payer BC, OTHER ==
[2021-02-02 10:33] VITALS: BMI 21.4
[2021-02-05] MEDS ORDERED: ROCURONIUM BROMIDE 50 MG/5 ML SYRINGE ONE (07:40)
[2021-02-05] MEDS ORDERED: ONDANSETRON 4 MG/2 ML VIAL ONE (07:40)
[2021-02-05] MEDS ORDERED: MIDAZOLAM HCL 2 MG/2 ML SINGLE DOSE VIAL ONE (07:40)
[2021-02-05] MEDS ORDERED: fentaNYL CITRATE 250 MCG/5 ML VIAL ONE (07:40)
[2021-02-05] MEDS ORDERED: LIDOCAINE HCL/PF 2% SDV 5ML VIAL ONE (07:40)
[2021-02-05] MEDS ORDERED: PROPOFOL 20 ML ONE (07:40)
[2021-02-05] MEDS ORDERED: DEXAMETHASONE SOD PHOSPHATE 4 MG/1 ML VIAL ONE (07:40)
[2021-02-05] MEDS ORDERED: CLINDAMYCIN PHOSPHATE 600 MG/4 ML VIAL ONE (08:09)
[2021-02-05] MEDS ORDERED: BUPIVACAINE LIPOSOME/PF (EXPAREL) 266 MG/20 ML VIAL ONE (08:38)
[2021-02-05] MEDS ORDERED: BUPIVACAINE HCL/PF 2.5 MG/ML - 30 ML VIAL IJ ONE (08:38)
[2021-02-05] MEDS ORDERED: ePHEDrine SULFATE 50 MG/1 ML AMPULE ONE (08:44)
[2021-02-05] MEDS ORDERED: DESFLURANE GAS 240 ML BOTTLE IH ONE (09:39)
[2021-02-05] MEDS ORDERED: GLYCOPYRROLATE 0.2 MG/1 ML VIAL ONE (09:48)
[2021-02-05] MEDS ORDERED: NEOSTIGMINE METHYLSULFATE 0.5 MG/1 ML - 10 ML MDV ONE (09:48)
[2021-02-05] MEDS ORDERED: ONDANSETRON 4 MG/2 ML VIAL IVPUSH PRN (11:12)
[2021-02-05] MEDS ORDERED: oxyCODONE HCL 5 MG TABLET PO PRN ×2 (11:29)
[2021-02-05] MEDS ORDERED: ONDANSETRON 4 MG/2 ML VIAL IVPB PRN (11:29)
[2021-02-05] MEDS ORDERED: LACTATED RINGERS SOLUTION 1,000 ML IV SCH (11:30)
[2021-02-05] MEDS ORDERED: oxyCODONE HCL 5 MG TABLET ONE (13:45)
[2021-02-05 14:23] VITALS: TEMP 98.2
[2021-02-05 14:28] VITALS: BP 138/67; PULSE 94
== END 2021-02-05 14:25 | disposition home or self-care (01) ==
LOC: FASU 06:28
PROVIDERS: ATTEND Plastic Surgery
PROC: 0HWT0JZ Revision of Synthetic Substitute in Right Breast, Open Approach (ICD-10-PCS; principal; 2021-02-05 08:30)
PROC: 0KXG0ZZ Transfer Left Trunk Muscle, Open Approach (ICD-10-PCS; 2021-02-05 08:30)
PROC: 0HB5XZX Excision of Chest Skin, External Approach, Diagnostic (ICD-10-PCS; 2021-02-05 08:30)
PROC: 0HBT0ZX Excision of Right Breast, Open Approach, Diagnostic (ICD-10-PCS; 2021-02-05 08:30)
DX: T85.44XA Capsular contracture of breast implant, initial encounter (principal); L92.3 Foreign body granuloma of the skin and subcutaneous tissue; L98.499 Non-pressure chronic ulcer of skin of other sites with unspecified severity; Z85.3 Personal history of malignant neoplasm of breast; Z90.13 Acquired absence of bilateral breasts and nipples; R22.2 Localized swelling, mass and lump, trunk; Y82.8 Other medical devices associated with adverse incidents; Y92.9 Unspecified place or not applicable; D23.5 Other benign neoplasm of skin of trunk
CPT/HCPCS: 94760

== ENCOUNTER 2022-09-30 04:10 | Day surgery (SDC) | payer BC, OTHER ==
[2022-09-27 09:35] VITALS: BMI 21.1
[2022-09-30] MEDS ORDERED: ONDANSETRON 4 MG/2 ML VIAL IVPUSH PRN (06:57)
[2022-09-30] MEDS ORDERED: oxyCODONE HCL 5 MG TABLET PO PRN (06:57)
[2022-09-30] MEDS ORDERED: LACTATED RINGERS SOLUTION 1,000 ML IV SCH (07:00)
[2022-09-30] MEDS ORDERED: DEXAMETHASONE SOD PHOSPHATE 10 MG/1 ML VIAL ONE (07:02)
[2022-09-30] MEDS ORDERED: BUPIVACAINE HCL/PF 0.5% (5MG/ML) 10 ML VIAL ONE (07:02)
[2022-09-30] MEDS ORDERED: ACETAMINOPHEN INJECTION 100 ML IVPB ONE (07:02)
[2022-09-30] MEDS ORDERED: PROPOFOL 60 ML ONE (07:05)
[2022-09-30] MEDS ORDERED: DEXAMETHASONE SOD PHOSPHATE 4 MG/1 ML VIAL ONE (07:05)
[2022-09-30] MEDS ORDERED: KETOROLAC TROMETHAMINE 30 MG/1 ML VIAL ONE (07:05)
[2022-09-30] MEDS ORDERED: MIDAZOLAM HCL 2 MG/2 ML SINGLE DOSE VIAL ONE (07:06)
[2022-09-30] MEDS ORDERED: LIDOCAINE HCL 1%, 10 MG/ML (10ML VIAL) MDV ONE (07:58)
[2022-09-30] MEDS ORDERED: ALBUTEROL SO4 HFA INHALER IH ONE (08:07)
[2022-09-30] MEDS ORDERED: KETAMINE HCL 500 MG/10 ML VIAL ONE (08:08)
[2022-09-30] MEDS ORDERED: ceFAZolin SODIUM 1 GM VIAL IVPB ONE (08:20)
[2022-09-30] MEDS ORDERED: ACETAMINOPHEN 325 MG TABLET (FP) PO PRN (09:00)
[2022-09-30 12:57] VITALS: RESP 20; TEMP 96.7
[2022-09-30 13:01] VITALS: BP 130/67; PULSE 65
== END 2022-09-30 11:36 | disposition home or self-care (01) ==
LOC: JASU-SURG 04:10
PROVIDERS: ATTEND Orthopaedic Surgery
PROC: 0LQ14ZZ Repair Right Shoulder Tendon, Percutaneous Endoscopic Approach (ICD-10-PCS; 2022-09-30)
PROC: 0RNJ4ZZ Release Right Shoulder Joint, Percutaneous Endoscopic Approach (ICD-10-PCS; principal; 2022-09-30 08:00)
DX: M75.101 Unspecified rotator cuff tear or rupture of right shoulder, not specified as traumatic (principal); M75.41 Impingement syndrome of right shoulder; M19.011 Primary osteoarthritis, right shoulder; M75.51 Bursitis of right shoulder; M65.811 Other synovitis and tenosynovitis, right shoulder
CPT/HCPCS: 29823; 29826; 29827; C1776; 94760; J1100